=== PATIENT | male | born 1965 | race American Indian/Alaskan Native ===

== ENCOUNTER 2017-07-27 12:04 | Emergency (ER) | payer SELFPAY ==
[2017-07-27] MEDS ORDERED: BACTRIM DS PO ONE (17:08)
[2017-07-27] MEDS ORDERED: VIBRAMYCIN PO ONE (17:08)
[2017-07-27] MEDS ORDERED: BENADRYL PO ONE (17:08)
--- NOTE | 2017-07-27 17:11 | Emergency Department Report ---
Chief Complaint: Allergic Reaction Stated Complaint: ALLERGIC REACTION Time Seen by Provider: 07/27/17 16:45 - HPI History of Present Illness: The patient is a 52-year-old male presents for evaluation of pain and rash to the face and neck. The patient reports an itching in quality rash to the face that spread to the neck over the past 2-3 days. She states that he initially experienced some peripheral facial swelling resolved. He denies headache, neck pain or neck stiffness, throat pain, chest pain, dyspnea, abdominal pain, blood in the stool. - Exam Vital Signs: Vital Signs 07/27/17 15:29 Temperature 98.4 F Pulse Rate 78 Respiratory 18 Rate Blood Pressure 139/95 O2 Sat by Pulse 99 Oximetry MSE screening note: Focused history and physical exam performed. Due to findings the following was ordered: The patient will be treated for suspected cellulitis. ED Disposition for MSE Condition: Stable Referrals: PRIMARY CARE, [Primary Care Provider] - 3-5 Days
--- NOTE | 2017-07-27 18:04 | Emergency Department Report ---
- General Chief complaint: Allergic Reaction Stated complaint: ALLERGIC REACTION Time Seen by Provider: 07/27/17 16:45 Source: patient Mode of arrival: Ambulatory Limitations: No Limitations - History of Present Illness Initial comments: 52-year-old male past medical history none presents with complaint of approximately 3 days of irritation to the skin around the neck face cheeks and eyebrows. Patient denies any allergies to any foods substances pets that he knows of. Denies using any new cosmetics denies any new foods denies any new soaps. Denies using any new jewelry. Patient is awake alert and oriented 3 denies fevers or chills denies headache. No drooling no trismus speaking in full sentences. Denies any cough. No overt facial or lip swelling. MD complaint: discoloration Onset/Timin -: days(s) Severity: mild Consistency: intermittent Improves with: none Worsens with: none Context: none Treatments Prior to Arrival: none - Related Data Previous Rx's Medication Instructions Recorded Last Taken Type Cephalexin [Keflex] 500 mg PO Q12HR #14 cap 07/27/17 Unknown Rx Hydrocortisone 1% [Hydrocortisone 1 applicatio TP TID PRN #1 tube 07/27/17 Unknown Rx 1% CREAM] Ibuprofen [Motrin] 800 mg PO Q8HR PRN #30 tablet 07/27/17 Unknown Rx Loratadine [Claritin] 10 mg PO DAILY #14 tablet 07/27/17 Unknown Rx Mineral Oil/Hydrophil Petrolat 1 applicatio TP BID #1 oint...g. 07/27/17 Unknown Rx [Aquaphor Healing Ointment] Sulfamethoxazole/Trimethoprim 1 each PO BID #14 tablet 07/27/17 Unknown Rx [Bactrim DS TAB] Allergies Allergy/AdvReac Type Severity Reaction Status Date / Time No Known Allergies Allergy Unverified 07/27/17 15:31 Abscess Boil HPI - HPI Chief Complaint: Allergic Reaction Stated Complaint: ALLERGIC REACTION Time Seen by Provider: 07/27/17 16:45 Home Medications: Previous Rx's Medication Instructions Recorded Last Taken Type Cephalexin [Keflex] 500 mg PO Q12HR #14 cap 07/27/17 Unknown Rx Hydrocortisone 1% [Hydrocortisone 1 applicatio TP TID PRN #1 tube 07/27/17 Unknown Rx 1% CREAM] Ibuprofen [Motrin] 800 mg PO Q8HR PRN #30 tablet 07/27/17 Unknown Rx Loratadine [Claritin] 10 mg PO DAILY #14 tablet 07/27/17 Unknown Rx Mineral Oil/Hydrophil Petrolat 1 applicatio TP BID #1 oint...g. 07/27/17 Unknown Rx [Aquaphor Healing Ointment] Sulfamethoxazole/Trimethoprim 1 each PO BID #14 tablet 07/27/17 Unknown Rx [Bactrim DS TAB] Allergies/Adverse Reactions: Allergies Allergy/AdvReac Type Severity Reaction Status Date / Time No Known Allergies Allergy Unverified 07/27/17 15:31 ED Review of Systems ROS: Stated complaint: ALLERGIC REACTION Other details as noted in HPI Constitutional: denies: chills, fever Eyes: denies: eye pain, eye discharge, vision change ENT: denies: ear pain, throat pain Respiratory: denies: cough, shortness of breath, wheezing Cardiovascular: denies: chest pain, palpitations Endocrine: no symptoms reported Gastrointestinal: denies: abdominal pain, nausea, diarrhea Genitourinary: denies: urgency, dysuria Musculoskeletal: denies: back pain, joint swelling, arthralgia Skin: as per HPI. denies: rash, lesions Neurological: denies: headache, weakness, paresthesias Psychiatric: denies: anxiety, depression Hematological/Lymphatic: denies: easy bleeding, easy bruising ED Past Medical Hx - Past Medical History Previous Medical History?: No - Social History Smoking Status: Never Smoker Substance Use Type: None - Medications Home Medications: Home Medications Medication Instructions Recorded Confirmed Last Taken Type Cephalexin [Keflex] 500 mg PO Q12HR #14 cap 07/27/17 Unknown Rx Hydrocortisone 1% [Hydrocortisone 1 applicatio TP TID PRN #1 tube 07/27/17 Unknown Rx 1% CREAM] Ibuprofen [Motrin] 800 mg PO Q8HR PRN #30 tablet 07/27/17 Unknown Rx Loratadine [Claritin] 10 mg PO DAILY #14 tablet 07/27/17 Unknown Rx Mineral Oil/Hydrophil Petrolat 1 applicatio TP BID #1 oint...g. 07/27/17 Unknown Rx [Aquaphor Healing Ointment] Sulfamethoxazole/Trimethoprim 1 each PO BID #14 tablet 07/27/17 Unknown Rx [Bactrim DS TAB] ED Physical Exam - General Limitations: No Limitations General appearance: alert, in no apparent distress - Head Head exam: Present: atraumatic, normocephalic - Eye Eye exam: Present: normal appearance, PERRL, EOMI Pupils: Present: normal accommodation - ENT ENT exam: Present: normal exam, mucous membranes moist - Neck Neck exam: Present: normal inspection, tenderness (some skin tenderness with thickening of skin around neck. Rough textured skin. Some induration to skin on back of neck fluctuance or abscess.), full ROM - Respiratory Respiratory exam: Present: normal lung sounds bilaterally. Absent: respiratory distress - Cardiovascular Cardiovascular Exam: Present: regular rate, normal rhythm. Absent: systolic murmur, diastolic murmur, rubs, gallop - GI/Abdominal GI/Abdominal exam: Present: soft, normal bowel sounds - Rectal Rectal exam: Present: deferred - Extremities Exam Extremities exam: Present: normal inspection - Back Exam Back exam: Present: normal inspection - Neurological Exam Neurological exam: Present: alert, oriented X3 - Psychiatric Psychiatric exam: Present: normal affect, normal mood - Skin Skin exam: Present: warm, dry, intact, normal color. Absent: rash - Expanded Skin Exam Expanded Type of lesion: Present: rash 1 - Rash with appearance of either dyshidrotic eczema or cellulitis around back of neck ED Course Vital Signs 07/27/17 15:29 Temperature 98.4 F Pulse Rate 78 Respiratory 18 Rate Blood Pressure 139/95 O2 Sat by Pulse 99 Oximetry ED Medical Decision Making - Medical Decision Making A/P: Cellulitis of skin around neck, possible dyshidrotic eczema 1-clinical signs of erysipelas. Vital signs stable patient is afebrile and not tachycardic. 2-discussed with Dr. Little initially examined and evaluated the patient. As per Dr. Little will treat patient empirically for cellulitis with Bactrim and Keflex, antihistamines and anti-inflammatories 3-I advised patient to return to the ED for any shortness of breath breath fevers chills nausea vomiting facial swelling or spread of cellulitis. I educated patient on signs and symptoms of cellulitis. Critical care attestation.: If time is entered above; I have spent that time in minutes in the direct care of this critically ill patient, excluding procedure time. ED Disposition Clinical Impression: Dyshidrotic eczema Cellulitis Qualifiers: Site of cellulitis: neck Qualified Code(s): L03.221 - Cellulitis of neck Disposition: - TO HOME OR SELFCARE Is pt being admited?: No Does the pt Need Aspirin: No Condition: Stable Instructions: Cellulitis (ED), Eczema (ED), Contact Dermatitis (ED) Prescriptions: Cephalexin [Keflex] 500 mg PO Q12HR #14 cap Hydrocortisone 1% [Hydrocortisone 1% CREAM] 1 applicatio TP TID PRN #1 tube PRN Reason: Itching Ibuprofen [Motrin] 800 mg PO Q8HR PRN #30 tablet PRN Reason: Pain Loratadine [Claritin] 10 mg PO DAILY #14 tablet Mineral Oil/Hydrophil Petrolat [Aquaphor Healing Ointment] 1 applicatio TP BID # 1 oint...g. Sulfamethoxazole/Trimethoprim [Bactrim DS TAB] 1 each PO BID #14 tablet Referrals: [facility] [Provider Group] - 3-[address] [facility] [place] [Outside] - 3-5 Days [facility] [Outside] - 3-5 Days Forms: Work/School Release Form(ED) Time of Disposition: 18:10
[2017-07-27 18:31] VITALS: BP 156/100
== END 2017-07-27 18:22 | disposition home or self-care (01) ==
LOC: ED 12:04
DX: L30.1 Dyshidrosis [pompholyx] (principal)
CPT/HCPCS: 99282

== ENCOUNTER 2017-09-26 11:24 | Emergency (ER) | payer SELFPAY ==
[2017-09-26 11:38] VITALS: BP 118/88
[2017-09-26] MEDS ORDERED: DECADRON IM ONE (13:25)
[2017-09-26] MEDS ORDERED: BENADRYL ONE (13:26)
[2017-09-26] MEDS ORDERED: BENADRYL IM ONE (13:26)
[2017-09-26] MEDS ORDERED: PEPCID PO ONE (13:26)
--- NOTE | 2017-09-26 13:26 | Emergency Department Report ---
ED Allergic Reaction HPI - General Chief complaint: Skin Rash Stated complaint: FACIAL SWELLING Time Seen by Provider: 09/26/17 12:54 Source: patient Mode of arrival: Ambulatory Limitations: No Limitations - History of Present Illness Initial Comments: 52M past medical history none presents with complaint of hives to neck upper back and face. Patient denies any new foods or new medicines cosmetics or new pets. Patient states that rash began yesterday after coming home and started on face. Patient denies any difficulty breathing denies any lip swelling no audible wheezing or stridor on exam. Patient speaking in full sentences. States that approximately a week ago he did dye his hair but has no other contact with new substances. Patient has visible hives on face and neck and some swelling around his eyes. No noticeable lip or mouth or tongue swelling. States rash is itchy. MD Complaint: allergic reaction, hives, facial swelling Onset/Timin -: days(s), Last night Symptoms: rash, itching Severity: moderate Treatment Prior to Arrival: none Previous Allergy History: none - Related Data Previous Rx's Medication Instructions Recorded Last Taken Type Cephalexin [Keflex] 500 mg PO Q12HR #14 cap 07/27/17 Unknown Rx Hydrocortisone 1% [Hydrocortisone 1 applicatio TP TID PRN #1 tube 07/27/17 Unknown Rx 1% CREAM] Ibuprofen [Motrin] 800 mg PO Q8HR PRN #30 tablet 07/27/17 Unknown Rx Loratadine [Claritin] 10 mg PO DAILY #14 tablet 07/27/17 Unknown Rx Mineral Oil/Hydrophil Petrolat 1 applicatio TP BID #1 oint...g. 07/27/17 Unknown Rx [Aquaphor Healing Ointment] Sulfamethoxazole/Trimethoprim 1 each PO BID #14 tablet 07/27/17 Unknown Rx [Bactrim DS TAB] Famotidine [Pepcid] 20 mg PO BID PRN #30 tablet 09/26/17 Unknown Rx Loratadine [Claritin] 10 mg PO DAILY #20 tablet 09/26/17 Unknown Rx Prednisone [predniSONE 10 mg 10 mg PO .TAPER #1 tab.ds.pk 09/26/17 Unknown Rx (6-Day Pack, 21 Tabs)] Allergies Allergy/AdvReac Type Severity Reaction Status Date / Time No Known Allergies Allergy Unverified 02/05/18 15:31 ED Review of Systems ROS: Stated complaint: FACIAL SWELLING Other details as noted in HPI Constitutional: denies: chills, fever Eyes: denies: eye pain, eye discharge, vision change ENT: denies: ear pain, throat pain Respiratory: denies: cough, shortness of breath, wheezing Cardiovascular: denies: chest pain, palpitations Endocrine: no symptoms reported Gastrointestinal: denies: abdominal pain, nausea, diarrhea Genitourinary: denies: urgency, dysuria Musculoskeletal: denies: back pain, joint swelling, arthralgia Skin: denies: rash, lesions Neurological: denies: headache, weakness, paresthesias Psychiatric: denies: anxiety, depression Hematological/Lymphatic: denies: easy bleeding, easy bruising ED Past Medical Hx - Past Medical History Previous Medical History?: No - Social History Smoking Status: Never Smoker Substance Use Type: None - Medications Home Medications: Home Medications Medication Instructions Recorded Confirmed Last Taken Type Cephalexin [Keflex] 500 mg PO Q12HR #14 cap 07/27/17 Unknown Rx Hydrocortisone 1% [Hydrocortisone 1 applicatio TP TID PRN #1 tube 07/27/17 Unknown Rx 1% CREAM] Ibuprofen [Motrin] 800 mg PO Q8HR PRN #30 tablet 07/27/17 Unknown Rx Loratadine [Claritin] 10 mg PO DAILY #14 tablet 07/27/17 Unknown Rx Mineral Oil/Hydrophil Petrolat 1 applicatio TP BID #1 oint...g. 07/27/17 Unknown Rx [Aquaphor Healing Ointment] Sulfamethoxazole/Trimethoprim 1 each PO BID #14 tablet 07/27/17 Unknown Rx [Bactrim DS TAB] Famotidine [Pepcid] 20 mg PO BID PRN #30 tablet 09/26/17 Unknown Rx Loratadine [Claritin] 10 mg PO DAILY #20 tablet 09/26/17 Unknown Rx Prednisone [predniSONE 10 mg 10 mg PO .TAPER #1 tab.ds.pk 09/26/17 Unknown Rx (6-Day Pack, 21 Tabs)] ED Physical Exam - General Limitations: No Limitations General appearance: alert, in no apparent distress - Head Head exam: Present: atraumatic, normocephalic - Eye Eye exam: Present: normal appearance, PERRL, EOMI, periorbital swelling (mild periorbital swelling b/l) Pupils: Present: normal accommodation - ENT ENT exam: Present: normal orophraynx (oropharynx patent no tongue swelling and no induration on the floor of mouth uvula is midline), mucous membranes moist - Neck Neck exam: Present: normal inspection, full ROM - Respiratory Respiratory exam: Present: normal lung sounds bilaterally. Absent: respiratory distress - Cardiovascular Cardiovascular Exam: Present: regular rate, normal rhythm. Absent: systolic murmur, diastolic murmur, rubs, gallop - GI/Abdominal GI/Abdominal exam: Present: soft, normal bowel sounds - Rectal Rectal exam: Present: deferred - Extremities Exam Extremities exam: Present: normal inspection - Back Exam Back exam: Present: normal inspection - Neurological Exam Neurological exam: Present: alert, oriented X3, CN II-XII intact, normal gait - Psychiatric Psychiatric exam: Present: normal affect, normal mood - Skin Skin exam: Present: warm, dry, intact, normal color. Absent: rash ED Course Vital Signs 09/26/17 11:32 Temperature 98.2 F Pulse Rate 75 Blood Pressure 118/88 O2 Sat by Pulse 98 Oximetry ED Medical Decision Making - Medical Decision Making A/P: hives, allergic reaction 1-significant reduction of hives with cocktail of Pepcid, Decadron and Benadryl 2-will give patient antihistamines and prednisone taper to mitigate allergic reaction. 3-possible patient had an allergic reaction to the hair dye used recently as he denies any other new allergens 4- vital signs stable for discharge Critical care attestation.: If time is entered above; I have spent that time in minutes in the direct care of this critically ill patient, excluding procedure time. ED Disposition Clinical Impression: Hives Disposition: DC-01 TO HOME OR SELFCARE Is pt being admited?: No Does the pt Need Aspirin: No Condition: Stable Instructions: Urticaria (ED), Acute Rash (ED), Allergies (ED), Itchy Skin (ED) Prescriptions: Famotidine [Pepcid] 20 mg PO BID PRN #30 tablet PRN Reason: Allergic Reaction Loratadine [Claritin] 10 mg PO DAILY #20 tablet Prednisone [predniSONE 10 mg (6-Day Pack, 21 Tabs)] 10 mg PO .TAPER #1 tab.ds.pk Referrals: [facility] [Provider Group] - 3-5 Days [facility] [Outside] - 3-5 Days Time of Disposition: 15:23
[2017-09-26] MEDS ORDERED: DECADRON ONE (13:27)
[2017-09-26] MEDS ORDERED: PEPCID ONE (13:27)
== END 2017-09-26 15:43 | disposition home or self-care (01) ==
LOC: ED 11:24
DX: L50.9 Urticaria, unspecified (principal); L50.0 Allergic urticaria
CPT/HCPCS: 96372; 99282; J1100; J1200